=== PATIENT | male | born 1970 | race African-American/Black ===

== ENCOUNTER 2017-02-01 00:16 | Emergency (ER) | payer OTHER ==
[~2017-02-01] VITALS: Ht 172.7 cm; Wt 72.0 kg
[2017-02-01] MEDS ORDERED: KETOROLAC 60MG/2ML VIAL IM ONE (03:15)
[2017-02-01] MEDS ORDERED: HYDROCODONE/ACETAMINOPHEN 5/325MG TABLET PO ONE (04:30)
[2017-02-01 05:56] VITALS: BP 117/72
== END 2017-02-01 06:01 | disposition home or self-care (01) ==
LOC: ER 00:16
DX: S02.5XXA Fracture of tooth (traumatic), initial encounter for closed fracture (principal); R51 Headache; F17.200 Nicotine dependence, unspecified, uncomplicated; Y04.0XXA Assault by unarmed brawl or fight, initial encounter; Y93.89 Activity, other specified; Y92.89 Other specified places as the place of occurrence of the external cause; Y99.8 Other external cause status
CPT/HCPCS: 70486; 72125; 96372; 99284; J1885

== ENCOUNTER 2017-02-07 18:56 | Emergency (ER) | payer OTHER ==
[~2017-02-07] VITALS: Ht 175.3 cm; Wt 72.0 kg
[2017-02-07 21:25] VITALS: BP 103/74
[2017-02-07 23:12] LABS: BASOPHILS % 0.6 % (0.0-2.0); EOSINOPHILS % 0.4 % (0.0-5.0); HEMATOCRIT. 47.5 % (42.0-52.0); HEMOGLOBIN. 16.1 g/dL (14.0-18.0); MEAN CORPUSCULAR HEMOGLOBIN 30.8 pg (28.0-32.0); MEAN CORPUSCULAR VOLUME 90.5 fL (80.0-94.0); MEAN PLATELET VOLUME 8.2 fl (7.4-10.4); PLATELET 268 x1000/uL (130-400); RED BLOOD CELL COUNT 5.25 mill/uL (4.7-6.1); RED CELL DISTRIBUTION WIDTH 13.2 % (11.6-14.6)
[2017-02-07 23:14] LABS: CHLORIDE 105 mEq/L (98-107)
[2017-02-07 23:23] LABS: CARBON DIOXIDE 26 mEq/L (21-32); ETHANOL BLOOD 59 mg/dL
== END 2017-02-07 22:22 | disposition left against medical advice (07) ==
LOC: ER 19:01
DX: F16.10 Hallucinogen abuse, uncomplicated (principal); E86.0 Dehydration; D72.810 Lymphocytopenia
CPT/HCPCS: 36415; 80053; 85025; 99284; G0482; Z7610

== ENCOUNTER 2017-04-02 13:13 | Emergency (ER) | payer OTHER ==
[~2017-04-02] VITALS: Ht 170.2 cm; Wt 73.0 kg
[2017-04-02 14:32] VITALS: BP 114/69
== END 2017-04-02 15:31 | disposition home or self-care (01) ==
LOC: ER 13:19
DX: S91.201A Unspecified open wound of right great toe with damage to nail, initial encounter (principal); F17.200 Nicotine dependence, unspecified, uncomplicated; F19.10 Other psychoactive substance abuse, uncomplicated; W22.8XXA Striking against or struck by other objects, initial encounter; Y93.89 Activity, other specified; Y92.89 Other specified places as the place of occurrence of the external cause; Y99.8 Other external cause status
CPT/HCPCS: 99281

== ENCOUNTER 2017-11-29 15:59 | Emergency (ER) | payer OTHER ==
[~2017-11-29] VITALS: Ht 172.7 cm; Wt 75.0 kg
[2017-11-29 16:00] VITALS: BP 138/76
== END 2017-11-29 16:21 | disposition left against medical advice (07) ==
LOC: ER 15:59
DX: Z53.21 Procedure and treatment not carried out due to patient leaving prior to being seen by health care provider (principal)

== ENCOUNTER 2017-12-30 20:10 | Emergency (ER) | payer OTHER ==
[~2017-12-30] VITALS: Ht 167.6 cm; Wt 64.0 kg
[2017-12-30 20:14] VITALS: BP 124/80
== END 2017-12-30 20:51 | disposition left against medical advice (07) ==
LOC: ER 20:29
DX: F10.129 Alcohol abuse with intoxication, unspecified (principal); F32.9 Major depressive disorder, single episode, unspecified; F17.200 Nicotine dependence, unspecified, uncomplicated; Z53.21 Procedure and treatment not carried out due to patient leaving prior to being seen by health care provider; Y90.9 Presence of alcohol in blood, level not specified

== ENCOUNTER 2019-01-14 13:32 | Emergency (ER) | payer OTHER, SELFPAY ==
[~2019-01-14] VITALS: Ht 167.6 cm; Wt 77.0 kg
[2019-01-14 13:34] VITALS: BP 129/75
== END 2019-01-14 14:40 | disposition left against medical advice (07) ==
LOC: ER 13:32
DX: T65.91XA Toxic effect of unspecified substance, accidental (unintentional), initial encounter (principal); R41.0 Disorientation, unspecified; Y92.410 Unspecified street and highway as the place of occurrence of the external cause; Z59.0 Homelessness
CPT/HCPCS: 99283

== ENCOUNTER 2019-06-16 02:53 | Emergency (ER) | payer MEDICAID ==
[~2019-06-16] VITALS: Ht 167.6 cm; Wt 73.0 kg
[2019-06-16 03:00] VITALS: BP 125/69
[2019-06-16] MEDS ORDERED: PERMETHRIN 5% CREAM 60GM TOP ONE (05:00)
[2019-06-16] MEDS ORDERED: PIPERONYL/PYRETHRINS (RID)120 ML SHAMPOO TOP NR (08:48)
== END 2019-06-16 14:31 | disposition left against medical advice (07) ==
LOC: ER 02:53
DX: B86 Scabies (principal); B85.1 Pediculosis due to Pediculus humanus corporis
CPT/HCPCS: 99282

== ENCOUNTER 2019-06-18 02:11 | Emergency (ER) | payer MEDICAID ==
[~2019-06-18] VITALS: Ht 170.2 cm; Wt 74.0 kg
[2019-06-18] MEDS ORDERED: DIPHENHYDRAMINE 50MG CAPSULE PO ONE (04:30)
[2019-06-18] MEDS ORDERED: HYDROCORTISONE 2.5% OINT 20GM TOP SCH (04:30)
[2019-06-18] MEDS ORDERED: HYDROCORTISONE 1% OINT 28.35GM TOP SCH (04:45)
[2019-06-18 05:22] VITALS: BP 120/61
== END 2019-06-18 05:24 | disposition home or self-care (01) ==
LOC: ER 02:11
DX: R21 Rash and other nonspecific skin eruption (principal); Z59.0 Homelessness
CPT/HCPCS: 99283; Q0163

== ENCOUNTER 2019-06-19 02:11 | Emergency (ER) | payer MEDICAID ==
[~2019-06-19] VITALS: Ht 170.2 cm; Wt 74.0 kg
[2019-06-19] MEDS ORDERED: PERMETHRIN 5% CREAM 60GM TOP ONE (03:00)
[2019-06-19] MEDS ORDERED: IBUPROFEN 600MG TABLET PO ONE (03:30)
[2019-06-19] MEDS ORDERED: ACETAMINOPHEN 325MG TABLET PO ONE (03:30)
[2019-06-19 04:28] VITALS: BP 109/65
== END 2019-06-19 04:29 | disposition home or self-care (01) ==
LOC: ER 02:11
DX: M79.18 Myalgia, other site (principal); B85.1 Pediculosis due to Pediculus humanus corporis; R03.0 Elevated blood-pressure reading, without diagnosis of hypertension
CPT/HCPCS: 99284

== ENCOUNTER 2019-06-22 18:42 | Emergency (ER) | payer MEDICAID ==
[~2019-06-22] VITALS: Ht 167.6 cm; Wt 66.0 kg
[2019-06-22 23:42] VITALS: BP 100/68
[2019-06-23] MEDS ORDERED: HYDROCORTISONE 1% OINT 28.35GM TOP SCH (06:00)
== END 2019-06-22 23:43 | disposition home or self-care (01) ==
LOC: ER 18:42
DX: L30.9 Dermatitis, unspecified (principal); F42.4 Excoriation (skin-picking) disorder
CPT/HCPCS: 99282

== ENCOUNTER 2019-06-27 03:23 | Emergency (ER) | payer MEDICAID ==
[~2019-06-27] VITALS: Ht 172.7 cm; Wt 73.0 kg
[2019-06-27] MEDS ORDERED: FAMOTIDINE 20MG/2ML VIAL IV STA (04:29)
[2019-06-27] MEDS ORDERED: SODIUM CHLORIDE 0.9% 1,000 ML IV ONE (04:29)
[2019-06-27] MEDS ORDERED: KETOROLAC 30MG/ML VIAL IV STA (04:29)
[2019-06-27 05:07] LABS: BASOPHILS % 1.2 % (0.0-2.0); CHLORIDE 110 mEq/L (98-107); EOSINOPHILS % 13.4 % (0.0-5.0); HEMATOCRIT. 37.2 % (42.0-52.0); HEMOGLOBIN. 12.3 g/dL (14.0-18.0); LYMPHOCYTES % 34.4 % (20.0-50.0); MEAN CORPUSCULAR HEMOGLOBIN 27.7 pg (28.0-32.0); MEAN CORPUSCULAR VOLUME 83.8 fL (80.0-94.0); MONOCYTES % 14.9 % (2.0-8.0); NEUTROPHILS % 36.1 % (40.0-76.0); PLATELET 218 x1000/uL (130-400); RED BLOOD CELL COUNT 4.44 mill/uL (4.7-6.1); RED CELL DISTRIBUTION WIDTH 12.7 % (11.6-14.6)
[2019-06-27 05:11] LABS: ETHANOL BLOOD < 10 mg/dL
[2019-06-27 06:09] LABS: CLARITY URINE CLEAR (CLEAR); COLOR URINE YELLOW (YELLOW); KETONES URINE NEGATIVE (NEGATIVE); LEUKOCYTE ESTERASE URINE NEGATIVE (NEGATIVE); NITRITE URINE NEGATIVE (NEGATIVE); OCCULT BLOOD URINE TRACE (NEGATIVE); PROTEIN URINE 1+ (NEGATIVE); SPECIFIC GRAVITY URINE 1.039 (1.005-1.030)
[2019-06-27 06:24] LABS: *COCAINE SCREEN URINE NEGATIVE (NEGATIVE); CANNABINOID URINE SCREEN NEGATIVE (NEGATIVE); METHADONE URINE SCREEN NEGATIVE (NEGATIVE); OPIATES URINE SCREEN NEGATIVE (NEGATIVE)
[2019-06-27 06:25] LABS: *AMPHETAMINES SCREEN URINE NEGATIVE (NEGATIVE); *BARBITURATES SCREEN URINE NEGATIVE (NEGATIVE); *BENZODIAZEPINES SCREEN URINE NEGATIVE (NEGATIVE); PHENCYCLIDINE URINE SCREEN PRESUMTIVE POSITIVE (NEGATIVE)
[2019-06-27 11:52] VITALS: BP 102/59
== END 2019-06-27 12:14 | disposition home or self-care (01) ==
LOC: ER 03:33 → CANBEDREQ 09:16 → ER 12:14
DX: R10.84 Generalized abdominal pain (principal); F16.19 Hallucinogen abuse with unspecified hallucinogen-induced disorder; Z72.89 Other problems related to lifestyle; Z59.0 Homelessness
CPT/HCPCS: 36415; 80053; 80305; 80320; 81003; 83690; 85025; 96374; 96375; 99285; J1885; J3490; J7030; G0480

== ENCOUNTER 2019-06-30 22:39 | Emergency (ER) | payer MEDICAID ==
[~2019-06-30] VITALS: Ht 165.1 cm; Wt 77.0 kg
[2019-07-01] MEDS ORDERED: LORATADINE 10MG TABLET PO SCH (01:15)
[2019-07-01 01:53] VITALS: BP 135/82
== END 2019-07-01 01:54 | disposition home or self-care (01) ==
LOC: ER 22:39
DX: R21 Rash and other nonspecific skin eruption (principal)
CPT/HCPCS: 99281; 99282

== ENCOUNTER 2019-07-23 18:34 | Emergency (ER) | payer MEDICAID ==
[~2019-07-23] VITALS: Ht 177.8 cm; Wt 75.0 kg
[2019-07-23 18:38] VITALS: BP 129/74
== END 2019-07-23 20:43 | disposition left against medical advice (07) ==
LOC: ER 18:34
DX: R41.82 Altered mental status, unspecified (principal); Z53.21 Procedure and treatment not carried out due to patient leaving prior to being seen by health care provider

== ENCOUNTER 2019-07-27 23:06 | Emergency (ER) | payer MEDICAID ==
[~2019-07-27] VITALS: Ht 172.7 cm; Wt 81.0 kg
[2019-07-27 23:28] VITALS: BP 132/83
== END 2019-07-28 00:19 | disposition left against medical advice (07) ==
LOC: ER 23:45
DX: F10.129 Alcohol abuse with intoxication, unspecified (principal); Y90.9 Presence of alcohol in blood, level not specified
CPT/HCPCS: 99283